=== PATIENT | male | born 1975 | race Caucasian/White ===

== ENCOUNTER 2021-05-31 10:38 | Emergency (ER) | payer BC, SELFPAY ==
[2021-05-31] VITALS (15 sets, daily range): BP systolic 118–158; BP diastolic 71–96; PULSE 56–85; RESP 7–20; TEMP 36.8; O2SAT 89–100
--- NOTE | 2021-05-31 10:48 | ED.GENADUL_ITS ---
Discharge Plan Disposition Patient Disposition: HOME Condition: Stable Discharge Details Clinical Impression: Dizziness Primary Care Provider: Sharla Mcbride ED Provider: Stephanie Santizo Home Meds and New Rx's Prescriptions: New meclizine 12.5 mg tablet 12.5 mg PO TID PRN (Reason: dizziness) Qty: 14 RF: 0 Continued epinephrine [EpiPen 2-Bhupinder] 0.3 MG/0.3 ML auto-injector 0.3 mg IJ PRN PRN (Reason: Anaphylaxis) Qty: 1 RF: 0 Discharge Instructions Instructions: Dehydration (ED), Vertigo (ED), Dizziness (ED) Additional Instructions: It is possible that your symptoms today were the result of dehydration. Drink plenty of fluids and get plenty of rest. You were given information today regarding symptoms associated with dizziness and dehydration and a specific type of dizziness called vertigo. Call your primary care doctor today to schedule a follow-up appointment for reevaluation and for referral for outpatient medical technologist hematology if your symptoms return or persist. Return immediately to the emergency department if you develop any worsening or new concerning symptoms. Discharge Data Discharge Physician: Stephanie Santizo Medical Decision Making 45yo male with no significant past medical history presents for an episode of dizziness, nausea, sweating and shaking after standing up quickly at home 1 hour prior to arrival. Most symptoms resolved other than some nausea at present. He denies any chest pain or palpitations during this episode. Vitals within normal limits. He appears comfortable and. He has no focal deficits on exam. No cerebellar signs. EKG notes a rate of 63, sinus with benign early repol, no STEMI, Nondiagnostic. Differential diagnosis includes dehydration, vertigo, BPPV, arrhythmia, electrolyte abnormality. History and presentation does not appear consistent with CVA. Will place an IV, bolus IV fluids, screening labs, EKG, chest x-ray and will give meclizine and Zofran and reassess. Labs and imaging reviewed and unremarkable. Orthostatic vital signs after IV fluids within normal limits. Patient reassessed and he feels much better and is requesting to go home. Offered to place a medical technologist hematology here but he declined stating he will follow up with his PCP for this. A prescription for meclizine was sent electronically to his pharmacy if needed. Advised to follow up with the primary care doctor for re-evaluation. Usual and customary return precautions given prior to discharge. Medical Records Medical records reviewed: Yes I reviewed the patient's medical records. Lab Data Lab results reviewed: Yes I reviewed the patient's lab results. Labs: Laboratory Tests Range/Units 05/31/21 05/31/21 05/31/21 11:35 11:35 11:35 WBC (4.4-10.8) 10^3/uL 6.02 RBC (4.36-5.78) 10^6/uL 4.73 Hgb (13.5-17.5) g/dL 14.1 Hct (40.0-50.0) % 42.0 MCV (80-95) fL 88.8 MCH (27.0-33.0) pg 29.8 MCHC (32.0-36.0) % 33.6 RDW (11.8-14.1) % 11.4 L Plt Count (130-400) 10^3/uL 197 MPV (8.0-11.0) fL 9.8 Immature Gran % 0.3 Neutrophils % 70.4 Lymphocytes % 22.3 Monocytes % 6.0 Eosinophils % 0.5 Basophils % 0.5 Nucleated RBC % % 0 Absolute Neutrophils (1.2-6.7) 10^3/uL 4.24 Absolute Lymphocytes (1.2-3.4) 10^3/uL 1.34 Absolute Monocytes (0.1-0.8) 10^3/uL 0.36 Absolute Eosinophils (0.0-0.7) 10^3/uL 0.03 Absolute Basophils (0.0-0.2) 10^3/uL 0.03 D-Dimer (<500) ng/mlFEU Sodium (136-145) mmol/L 138 Potassium (3.5-5.1) mmol/L 3.9 Chloride (98-107) mmol/L 103 Carbon Dioxide (21.0-32.0) mmol/L 29.8 Anion Gap (3-11) mmol/L 5.2 BUN (7-18) mg/dL 16 Creatinine (0.70-1.30) mg/dL 1.1 Estimated GFR/1.73 m2 (mL/min/1.73m2) >= 60.00 Glucose (74-106) mg/dL 124 H Calcium (8.5-10.1) mg/dL 8.8 Magnesium (1.8-2.4) mg/dL 1.8 Total Bilirubin (0.2-1.0) mg/dL 0.5 AST (15-37) U/L 19 ALT (16-63) U/L 27 Alkaline Phosphatase (46-116) U/L 100 Troponin I (<0.06) ng/mL < 0.05 Total Protein (6.4-8.2) g/dL 7.3 Albumin (3.4-5.0) g/dL 3.8 Range/Units 05/31/21 11:35 WBC (4.4-10.8) 10^3/uL RBC (4.36-5.78) 10^6/uL Hgb (13.5-17.5) g/dL Hct (40.0-50.0) % MCV (80-95) fL MCH (27.0-33.0) pg MCHC (32.0-36.0) % RDW (11.8-14.1) % Plt Count (130-400) 10^3/uL MPV (8.0-11.0) fL Immature Gran % Neutrophils % Lymphocytes % Monocytes % Eosinophils % Basophils % Nucleated RBC % % Absolute Neutrophils (1.2-6.7) 10^3/uL Absolute Lymphocytes (1.2-3.4) 10^3/uL Absolute Monocytes (0.1-0.8) 10^3/uL Absolute Eosinophils (0.0-0.7) 10^3/uL Absolute Basophils (0.0-0.2) 10^3/uL D-Dimer (<500) ng/mlFEU 167 Sodium (136-145) mmol/L Potassium (3.5-5.1) mmol/L Chloride (98-107) mmol/L Carbon Dioxide (21.0-32.0) mmol/L Anion Gap (3-11) mmol/L BUN (7-18) mg/dL Creatinine (0.70-1.30) mg/dL Estimated GFR/1.73 m2 (mL/min/1.73m2) Glucose (74-106) mg/dL Calcium (8.5-10.1) mg/dL Magnesium (1.8-2.4) mg/dL Total Bilirubin (0.2-1.0) mg/dL AST (15-37) U/L ALT (16-63) U/L Alkaline Phosphatase (46-116) U/L Troponin I (<0.06) ng/mL Total Protein (6.4-8.2) g/dL Albumin (3.4-5.0) g/dL ECG Data Attestation: I personally reviewed and interpreted this ECG (s) as follows: Interpretation: Rate of 63, sinus, no acute ST elevation or depression. TX 190. QRS 97. QTc 407. HPI General Mode of arrival: ambulatory . Date/Time Provider Initiated Documentation: 05/31/21 10:46 . Limitations to Documentation: no limitations . Information obtained by: patient . HPI Narrative: Patient is a 45-year-old male with no significant past medical history presents for an episode of dizziness, nausea, sweating and feeling shaky after standing up quickly at home prior to arrival. Patient states around 10 AM this morning he stood up quickly to answer the phone and upon sitting back down felt a spinning sensation, sweaty, nauseous and shaky. He states the dizziness and shaking are resolved but still feels some nausea. He denies any similar history in the past. He states he had been feeling fine prior to this episode and denies any recent illnesses, fever, vomiting, diarrhea or known sick contacts. Patient denies any symptoms of chest pain, shortness of breath or palpitations during the episode. He describes the dizziness as a spinning sensation. He states he has been doing work around the house lately and may not be as hydrated as usual. He states he has been eating normally. Related Data Home Medications Medication Instructions Recorded Confirmed epinephrine [EpiPen 2-Bhupinder] 0.3 mg IJ PRN PRN #1 auto.injct 04/06/18 05/31/21 meclizine 12.5 mg PO TID PRN #14 tab 05/31/21 Previous Rx's Medication Instructions Recorded epinephrine [EpiPen 2-Bhpuinder] 0.3 mg IJ PRN PRN #1 auto.injct 04/06/18 meclizine 12.5 mg PO TID PRN #14 tab 05/31/21 Allergies Allergy/AdvReac Type Severity Reaction Status Date / Time No Known Allergies Allergy Unverified 05/31/21 10:44 General Stated Complaint: Dizzy/Sync ELBA: 3 Review of Systems All systems reviewed & are unremarkable except as noted in HPI and below Constitutional Constitutional: Reports as per HPI, Denies chills and Denies fever(s) Eyes Eyes: Denies blurry vision ENT Ears, Nose, Mouth, and Throat: Reports dizziness, Denies sore throat and Denies throat swelling Cardiovascular Cardiovascular: Denies chest pain and Denies dyspnea Respiratory Respiratory: Denies cough and Denies dyspnea Gastrointestinal Gastrointestinal: Denies abdominal pain, Denies diarrhea, Reports nausea and Denies vomiting Genitourinary Genitourinary: Denies hematuria and Denies dysuria Musculoskeletal Musculoskeletal: Denies back pain and Denies numbness Integumentary/Breasts Skin/Breast: Denies lesions and Denies rash Neurologic Neurologic: Reports dizziness, Denies localized weakness and Denies numbness Allergic/Immunologic Allergic/Immunologic: Denies throat swelling [facility] Medical History (Updated 05/31/21 @ 13:12 by Stephanie Santizo DO) No significant past medical history Surgical History (Updated 05/31/21 @ 11:07 by Stephanie Santizo DO) No significant past surgical history Social History Smoking/Tobacco Use Status: Never Smoking risk assessment performed?: Yes Alcohol Intake: current Alcohol Intake frequency: a few times a week Substance use type: does not use Do you feel safe at home: Yes Do you feel safe in your relationship?: Yes Exam Const General: cooperative, healthy appearing and no acute distress [facility] Head: normal to inspection Ears: hearing grossly normal bilaterally, external ears normal and TM's normal bilaterally Face and sinus: normal facial exam Mouth: oral mucosae normal Eyes General: appearance normal, both eyes and all related structures Pupils: PERRL EOM: EOM intact bilaterally Neck Neck: normal visual inspection and No submandibular swelling Lymphatic: no lymphadenopathy noted Chest Chest: normal inspection of the chest and no tenderness Resp Effort & Inspection: normal respiratory effort and able to speak in complete sentences Auscultation: clear to auscultation bilaterally Cardio Rate: regular rate Rhythm: regular rhythm GI Inspection: normal to inspection Palpation: soft, not firm, not rigid and nontender Auscultation: normal bowel sounds Skin General skin exam: no rashes or lesions noted Neuro General: patient alert, patient awake, patient oriented x3, moves all extremities, no meningeal signs and no focal motor deficits Cranial Nerves: CN's II-XI intact bilaterally Cognition: normal cognition Speech: speech normal Motor: muscle tone normal throughout, strength 5/5 throughout, no pronator drift and no movement abnormalities noted Sensory Exam: no sensory deficits noted Extrem General: normal to inspection, full ROM, capillary refill normal, no calf tenderness bilaterally and no edema Psych Appearance: grossly normal Mental Status: mental status grossly normal Speech and Movement: speech and movement normal Affect: normal affect Course Vital Signs Vital signs: Vital Signs Temperature 98.2 F 05/31/21 10:42 Pulse 74 05/31/21 10:42 Respiratory Rate 18 05/31/21 10:42 Blood Pressure 158/86 H 05/31/21 10:42 Pulse Oximetry 98 05/31/21 10:42 Temperature 98.2 F 05/31/21 10:42 Temperature Source Temporal Artery Scan 05/31/21 10:42 Pulse 74 05/31/21 10:42 Respiratory Rate 18 05/31/21 10:45 Respiratory Effort Non-Labored 05/31/21 10:45 Respiratory Depth Normal 05/31/21 10:45 Respiratory Pattern Normal 05/31/21 10:45 Blood Pressure 118/71 05/31/21 10:47 Pulse Oximetry 98 05/31/21 10:42 Oxygen Delivery Method Room Air 05/31/21 10:42 Oxygen Flow Rate 0 05/31/21 10:42 Pain Level 0 05/31/21 10:42
--- NOTE | 2021-05-31 11:00 | DI.RAD_ITS ---
Exam(s) XR CHEST 2V PA LATERAL EXAM: XR CHEST 2V PA LATERAL CLINICAL HISTORY: dizziness, r/o acute disease. TECHNIQUE: 2D digital imaging was performed. COMPARISON: No exams were available for comparison FINDINGS: Heart size is normal. The mediastinum is not widened. Lungs are clear. No infiltrates nor pleural effusions. IMPRESSION: No acute pulmonary findings. DATA REPOSITORY: RADIATION DOSE DELIVERED:
--- NOTE | 2021-05-31 11:00 | RT.EKG_ITS ---
APPROVED REPORT Exam: Resting ECG Reason for Exam: dizziness Patient Location: E HR:63 bpm ECG Measurements Heart Rate 63 AXIS WV 190 P 75 QRSd 97 QRS 68 QT 396 T 36 QTc 407 Conclusion Sinus rhythm...normal P axis, V-rate 60- 99 ST elev, probable normal early repol pattern...ST elevation, age<55. Sinus. Benign early repol. No STEMI. I have reviewed and interpreted ECG and agree with software generated interpretation.
[2021-05-31] MEDS: Normal Saline 1,000 ML 1000 ML IV (11:37)
[2021-05-31 11:47] LABS: Abs Immature Grans 0.02 10^3/uL (0.0-0.06); Absolute Basophil Count 0.03 10^3/uL (0.0-0.2); Absolute Eosinophil Count 0.03 10^3/uL (0.0-0.7); Absolute Lymphocyte Count 1.34 10^3/uL (1.2-3.4); Absolute Monocyte Count 0.36 10^3/uL (0.1-0.8); Absolute Neutrophil Count 4.24 10^3/uL (1.2-6.7); Basophils % 0.5; Eosinophils % 0.5; HGB 14.1 g/dL (13.5-17.5); Immature Grans % 0.3; Lymphocytes % 22.3; MCH 29.8 pg (27.0-33.0); MCHC 33.6 % (32.0-36.0); MCV 88.8 fL (80-95); MPV 9.8 fL (8.0-11.0); Neutrophils % 70.4; Nucleated RBC 0 %; Platelet Count 197 10^3/uL (130-400); RBC 4.73 10^6/uL (4.36-5.78); RDW 11.4 % (11.8-14.1); RDW-SD 37.2 fL; WBC 6.02 10^3/uL (4.4-10.8)
[2021-05-31] MEDS: Meclizine 25 MG TAB PO (11:51)
[2021-05-31] MEDS: Ondansetron 4 MG/2 ML VIAL IVP (11:51)
[2021-05-31 12:14] LABS: Magnesium 1.8 mg/dL (1.8-2.4)
[2021-05-31 12:23] LABS: ALT 27 U/L (16-63); AST 19 U/L (15-37); Albumin 3.8 g/dL (3.4-5.0); Alkaline Phosphatase 100 U/L (46-116); Anion Gap 5.2 mmol/L (3-11); BUN 16 mg/dL (7-18); Bilirubin, Total 0.5 mg/dL (0.2-1.0); CO2 29.8 mmol/L (21.0-32.0); CREATININE 1.1 mg/dL (0.70-1.30); Calcium 8.8 mg/dL (8.5-10.1); Chloride 103 mmol/L (98-107); Glucose 124 mg/dL (74-106); Potassium 3.9 mmol/L (3.5-5.1); Sodium 138 mmol/L (136-145); Total Protein 7.3 g/dL (6.4-8.2)
[2021-05-31 12:25] LABS: Troponin I < 0.05 ng/mL (<0.06)
[2021-05-31 12:28] LABS: D-Dimer 167 ng/mlFEU (<500)
--- OUTSIDE RECORDS SUMMARY | 2021-05-31 13:59 | XMS_ITS | Continuity of Care Document ---
:1975 Author Organization [facility] Address [address] [place] [address] Care Team Providers Name Role Phone Reed Primary Care Physician Unavailable Allergies, Adverse Reactions, Alerts No known allergies. Medications Active Medications Medication Dose Units Route Sig Qty Days Start Date St atus Cephalexin 500 MG ORAL FOUR TIMES DAILY 20 5 2017 Active Problem List Active Problems Medical Problem Onset Date Status Puncture wound of left little finger Act eldon Procedures No known history of procedures. Relevant Diagnostic Tests and/or Laboratory Data No known relevant diagnostic tests, laboratory data, and/or discharge summary. Advance Directives Advance Directive Response Recorded Date/Time Do we have a copy on file here at [facility]? No A ug2017 11:23am Does patient have an Advanced Directive? No May 15, 2018 11:23am Pt has a Living Will? No May 15, 2018 11 :23am Pt has a Power of Tug Captain? No May 15 11:23am Hospital Discharge Instructions Additional Discharge Instructions Take antibiotic exac tly as prescribed with food to help prevent infection. Do not skip or miss any doses. Soak the area twice daily in warm soapy water. Keep clean and dry. Keep covered as needed to avoid contact with possib le infectious material. You have declined x-ray to rule out any retained foreign body. If you change your mind please follow-up for this exam. If at any time you develop any worsening, pain, swelling, redness, discharge, or pain with pass eldon range of motion as demonstrated please follow-u p immediately as this could indicate infection of the skin, tendons or other deep structures. Instruction/Education Provided Wound Care (DC) Hospital Discharge Medications Medication Dose Units Route Sig Qty Days Order Date Status In structions Cephalexin 500 MG ORAL FOUR TIMES 20 5 May 15, Activ e DAILY 2018 Encounters Encounter Facility Location Admit/Visit Discharge/Departure Atte nding Date Date Provider Departed [facility] May 15May 15, 2018 [facility] [place] 2017 11:18am 11:53am Functional Status No known functional status. Immunizations Immunization Name Date Given Type Tdap May 15, 2018 Administered Payers Payer Name Policy Type Covered Covered Relationship Subscriber Sub scriber Id Republican Republican Id [employer] Commercial ANNEMARIE [id number] Self/Same as ANNEMARIE WIGGINS [id number] [facility] 60 Patient [employer] SELF PAY Personal Plan of Care Instructions Wound Care (DC) Social History Query Response Start Date Stop Date Smoking Status Never smoker Vital Signs Vital Reading Result Reference Range Collection Date/ Time Height n/a Weight 83.915 kg May 15, 2018 11:26am Temperature 98.4 F 97.6 F-99.6 F May 15, 2018 11:26am Pulse 65 BPM 60-100 May 15, 2018 11:26am Respiration 12 RPM 12-24 May 15, 2018 11:26am Pulse Oximetry n/a Blood Pressure Systolic 120 100-140 May 062017 11:26am Blood Pressure Diastolic 62 50-85 May 15, 2018 11:26am Body Mass Index n/a
== END 2021-05-31 13:27 | disposition home or self-care (01) ==
PROVIDERS: Emergency Provider Physician Assistant; PCP Nurse Practitioner Family
DX: R04.2 Hemoptysis (principal); J18.8 Other pneumonia, unspecified organism; Z20.822 Contact with and (suspected) exposure to COVID-19; Z03.818 Encounter for observation for suspected exposure to other biological agents ruled out
CPT/HCPCS: 36415; 80053; 93005; 99285; 71046; 83735; 84484; 85025; 85379; 93010; J2405

== ENCOUNTER 2023-03-01 09:34 | Outpatient (CLI) | payer BC, SELFPAY ==
--- NOTE | 2023-03-01 09:30 | RT.EKG_ITS ---
APPROVED REPORT Exam: Resting ECG Reason for Exam: Chest dscomfort Patient Location: O HR:60 bpm ECG Measurements Heart Rate 60 AXIS LA 200 P 76 QRSd 94 QRS 73 QT 385 T 49 QTc 385 Conclusion Sinus rhythm...normal P axis, V-rate 50- 99 ST elev, probable normal early repol pattern...ST elevation, age<55 Normal Electrocardiogram
== END 2023-03-01 09:35 | disposition home or self-care (01) ==
LOC: DI.CM 09:35
PROVIDERS: PCP Nurse Practitioner Family; Visit Provider Nurse Practitioner Family
DX: R07.89 Other chest pain (principal)
CPT/HCPCS: 93010

== ENCOUNTER 2023-03-01 10:17 | Emergency (ER) | payer BC, SELFPAY ==
[2023-03-01] VITALS (52 sets, daily range): BP systolic 122–129; BP diastolic 75–103; PULSE 59–61; RESP 9–32; TEMP 36.8; O2SAT 96–100
--- NOTE | 2023-03-01 10:15 | RT.EKG_ITS ---
APPROVED REPORT Exam: Resting ECG Reason for Exam: chest pain Patient Location: E HR:61 bpm ECG Measurements Heart Rate 61 AXIS MO 176 P 59 QRSd 95 QRS 69 QT 395 T 30 QTc 399 Conclusion Sinus rhythm...normal P axis, V-rate 60- 99 ST elev, probable normal early repol pattern...ST elevation, age<55
--- NOTE | 2023-03-01 10:30 | DI.RAD_ITS ---
Exam(s) XR PORTABLE CHEST AP EXAM: XR PORTABLE CHEST AP CLINICAL HISTORY: chest pain. TECHNIQUE: 2D digital imaging was performed. COMPARISON: CR XR CHEST 2V PA LATERAL from 05/31/2021 FINDINGS: Single AP portable view. Heart size is upper normal. The mediastinum is not widened. Lungs are clear. No infiltrates nor obvious pleural effusions. IMPRESSION: No acute pulmonary findings on this single AP portable view of the chest. DATA REPOSITORY: RADIATION DOSE DELIVERED:
--- NOTE | 2023-03-01 10:34 | ED.GENADUL_ITS ---
Discharge Plan Disposition Patient Disposition: Home Condition: Stable Discharge Details Clinical Impression: Chest pain Primary Care Provider: Sharla Mcbride ED Provider: Uche Seymour Home Meds and New Rx's Prescriptions: Continued epinephrine [EpiPen 2-Buhpinder] 0.3 MG/0.3 ML auto-injector 0.3 mg IJ PRN PRN (Reason: Anaphylaxis) Qty: 1 0RF meclizine 12.5 mg tablet 12.5 mg PO TID PRN (Reason: dizziness) Qty: 14 0RF Discharge Instructions Instructions: Chest Pain (ED) Additional Instructions: your blood work, xray and ekg did not show concerning findings follow up with your primary care provider within 1 week if you feel more ill, have severe worsening pain or difficulty breathing return to the emergency department Medical Decision Making 47 yo male with no significant pmhx who comes in with intermittent chest pain for 2 months. HE states that he will get 10-15 seconds of a twinge and spasm sensation in the left anterior chest. Denies diaphoresis, no dyspnea, no n/v. He states he will also sometimes get a tingling sensation in his left arm. HE denies pain with exertion. HE arrives stable speaking clearly in no distress. HE has no leg swelling, no calf tenderness, clear lungs, no murmurs, no jvd, normal gait without focal deficits. Suspect muscle spasm vs chest wall pain, but given pain will obtain cbc, cmp, troponin, d dimer and monitor. pt stable, imaging and labs unremarkable, given he's had symptoms over 3 hours do not feel delta troponin indicated. HE was instructed to f/u with his pcp and discuss stress testing, heart score is less then 3, return precautions given Differential Diagnosis Differential Diagnosis: chest wall pain, muscle spasm, nstemi Medical Records Medical records reviewed: Yes I reviewed the patient's medical records. Imaging Data Radiologic Study: Attestation: I personally reviewed and interpreted this imaging study as follows: Imaging: X-Ray Radiologist's impression: no acute findings Lab Data Lab results reviewed: Yes I reviewed the patient's lab results. ECG Data Attestation: I personally reviewed and interpreted this ECG (s) as follows: Prior ECG tracings: available for review Interpretation: sinus rate pf 61, pr 176, no stemi no st depressions HPI General Mode of arrival: ambulatory . Date/Time Provider Initiated Documentation: 03/01/23 10:19 . Limitations to Documentation: no limitations . Information obtained by: patient . History of Present Illness 47 year old M presents to the emergency department with the chief complaint of chest pain, described as moderate, Quality is described as aching, and is localized to the chest. Patient started experiencing this month(s) (2) and it has been intermittent. No relieving factors improve symptom(s), No exacerbating factors reported . Patient notes no other symptoms.. Patient did receive the following treatments prior to arrival, none Related Data Home Medications Medication Instructions Recorded Confirmed epinephrine 0.3 mg/0.3 mL 0.3 mg (0.3 mL) IJ PRN PRN 04/06/18 03/01/23 injection, auto-injector (EpiPen Anaphylaxis ##1 2-Bhupinder) meclizine 12.5 mg tablet 12.5 mg PO TID PRN dizziness #14 05/31/21 03/01/23 tabs Previous Rx's Medication Instructions Recorded epinephrine 0.3 mg/0.3 mL 0.3 mg (0.3 mL) IJ PRN PRN 04/06/18 injection, auto-injector (EpiPen Anaphylaxis ##1 2-Bhupinder) meclizine 12.5 mg tablet 12.5 mg PO TID PRN dizziness #14 05/31/21 tabs Allergies Allergy/AdvReac Type Severity Reaction Status Date / Time bee venom protein (honey bee) AdvReac Unverified 03/01/23 10:28 bee Allergy Uncoded 03/01/23 10:28 General Stated Complaint: Chest Pain ELBA: 3 Review of Systems All systems reviewed & are unremarkable except as noted in HPI and below Constitutional Constitutional: Denies chills, Denies fever(s) and Denies weakness Cardiovascular Cardiovascular: Denies dyspnea Respiratory Respiratory: Denies cough and Denies dyspnea Gastrointestinal Gastrointestinal: Denies abdominal pain, Denies nausea and Denies vomiting Musculoskeletal Musculoskeletal: Denies joint swelling Integumentary/Breasts Skin/Breast: Denies rash Neurologic Neurologic: Denies weakness PFSH All Active Problems (Updated 03/01/23 @ 12:07 by Uche Seymour MD) Dizziness (Acute) Chest pain (Acute) Medical History (Updated 03/01/23 @ 12:07 by Uche Seymour MD) No significant past medical history Surgical History (Updated 05/31/21 @ 11:07 by Stephanie Santizo DO) No significant past surgical history Social History Smoking/Tobacco Use Status: Never Smoking risk assessment performed?: Yes Alcohol Intake: current Alcohol Intake frequency: a few times a week Substance use type: does not use Do you feel safe at home: Yes Do you feel safe in your relationship?: Yes Exam Const General: no acute distress Orientation: alert HENMT Head: normal to inspection Ears: external ears normal General nose exam: external nose normal Mouth: moist mucous membranes Resp Effort & Inspection: normal respiratory effort and able to speak in complete sentences Auscultation: clear to auscultation bilaterally Cardio Jugular venous pressure: no JVD Rate: regular rate Heart Sounds: no murmurs GI Palpation: soft and nontender Skin General skin exam: no rashes or lesions noted Neuro General: patient alert and patient oriented x3 Course Vital Signs Vital signs: Vital Signs Temperature 36.8 C 03/01/23 10:21 Pulse 61 03/01/23 10:21 Respiratory Rate 16 03/01/23 10:21 Blood Pressure 129/75 03/01/23 10:21 Pulse Oximetry 100 03/01/23 10:21 Temperature 36.8 C 03/01/23 10:21 Temperature Source Oral 03/01/23 10:21 Pulse 61 03/01/23 10:21 Respiratory Rate 16 03/01/23 10:21 Blood Pressure 129/75 03/01/23 10:21 Pulse Oximetry 100 03/01/23 10:21 Oxygen Delivery Method Room Air 03/01/23 10:21 Oxygen Flow Rate 0 03/01/23 10:21 Pain Level 2 03/01/23 10:21
[2023-03-01 10:42] LABS: Absolute Basophil Count 0.04 10^3/uL (0.0-0.2); Absolute Eosinophil Count 0.07 10^3/uL (0.0-0.7); Absolute Lymphocyte Count 2.09 10^3/uL (1.2-3.4); Absolute Monocyte Count 0.43 10^3/uL (0.1-0.8); Absolute Neutrophil Count 3.48 10^3/uL (1.2-6.7); Basophils % 0.7; Eosinophils % 1.1; HCT 45.7 % (40.0-50.0); HGB 15.6 g/dL (13.5-17.5); Lymphocytes % 34.2; MCH 29.8 pg (27.0-33.0); MCHC 34.1 % (32.0-36.0); MCV 87 fL (80-95); MPV 9.6 fL (8.0-11.0); Platelet Count 214 10^3/uL (130-400); RBC 5.23 10^6/uL (4.36-5.78); RDW 11.8 % (11.8-14.1); RDW-SD 37.5 fL; WBC 6.11 10^3/uL (4.4-10.8)
[2023-03-01 11:06] LABS: ALT 41 U/L (16-63); AST 24 U/L (15-37); Albumin 4.1 g/dL (3.4-5.0); Alkaline Phosphatase 105 U/L (46-116); Anion Gap 3.2 mmol/L (3-11); BUN 17 mg/dL (7-18); Bilirubin, Total 0.7 mg/dL (0.2-1.0); CO2 29.8 mmol/L (21.0-32.0); CREATININE 1.2 mg/dL (0.70-1.30); Calcium 9.2 mg/dL (8.5-10.1); Chloride 100 mmol/L (98-107); Glucose 101 mg/dL (74-106); Lipase 73 U/L (16-77); Magnesium 1.9 mg/dL (1.8-2.4); Potassium 4.5 mmol/L (3.5-5.1); Sodium 133 mmol/L (136-145); TSH (W/Ref FT4) 2.84 uIU/mL (0.36-3.74); Total Protein 7.8 g/dL (6.4-8.2)
[2023-03-01 11:07] LABS: Troponin I < 50 ng/L (<or=60)
[2023-03-01 11:22] LABS: D-Dimer 163 ng/mlFEU (<500)
--- NOTE | 2023-03-01 11:24 | DI.VRAD_ITS ---
PROCEDURE INFORMATION: Exam: XR Chest Exam date and time: 03/01/2023 11:14 AM Age: 47 years old Clinical indication: Pain; Chest pressure TECHNIQUE: Imaging protocol: Radiologic exam of the chest. Views: 1 view. Total images: 1 COMPARISON: CR XR CHEST 2V PA LATERAL 05/31/2021 12:06 PM FINDINGS: Lungs: Unremarkable. No consolidation. Pleural spaces: Unremarkable. No pleural effusion. No pneumothorax. Heart/Mediastinum: Unremarkable. No cardiomegaly. Bones/joints: Unremarkable. IMPRESSION: No acute findings. Dictated and Authenticated by: Frederick Torres MD. Ordering:JUAN Ivey MD
== END 2023-03-01 12:18 | disposition home or self-care (01) ==
PROVIDERS: Emergency Provider Emergency Medicine; PCP Nurse Practitioner Family
DX: R07.9 Chest pain, unspecified (principal)
CPT/HCPCS: 36415; 80053; 83690; 93005; 99283; 71045; 83735; 84443; 84484; 85025; 85379; 93010; 99284

== ENCOUNTER 2025-04-07 21:35 | Outpatient (REF) | payer BC, SELFPAY ==
[2025-04-07 21:58] LABS: Abs Immature Grans 0.02 10^3/uL (0.0-0.06); HCT 45.6 % (40.0-50.0); HGB 15.9 g/dL (13.5-17.5); Immature Grans % 0.3 %; MCH 30.0 pg (27.0-33.0); MCHC 34.9 % (32.0-36.0); MCV 86 fL (80-95); MPV 10.3 fL (8.0-11.0); Platelet Count 277 10^3/uL (130-400); RBC 5.30 10^6/uL (4.36-5.78); RDW 11.9 % (11.8-14.1); RDW-SD 37.0 fL; WBC 7.17 10^3/uL (4.4-10.8)
[2025-04-07 22:21] LABS: ALT 33 U/L (16-63); AST 19 U/L (15-37); Albumin 4.5 g/dL (3.4-5.0); Alkaline Phosphatase 113 U/L (46-116); Anion Gap 9.4 mmol/L (3-11); BUN 19 mg/dL (7-18); Bilirubin, Total 0.9 mg/dL (0.2-1.0); CO2 29.6 mmol/L (21.0-32.0); Calcium 9.7 mg/dL (8.5-10.1); Chloride 102 mmol/L (98-107); Estimated GFR 68.19 (mL/min/1.73m2); Glucose 100 mg/dL (74-106); Potassium 4.4 mmol/L (3.5-5.1); Sodium 141 mmol/L (136-145); Total Protein 8.0 g/dL (6.4-8.2)
== END 2025-04-07 21:36 | disposition home or self-care (01) ==
LOC: LBN 21:35
PROVIDERS: PCP Physician Assistant; Visit Provider Physician Assistant
DX: R10.9 Unspecified abdominal pain (principal)
CPT/HCPCS: 80053; 85025

== ENCOUNTER 2025-07-11 14:51 | Outpatient (CLI) | payer BC, SELFPAY ==
[2025-07-11 16:43] LABS: Calculated LDL 99 mg/dL (<100); Cholesterol 202 mg/dL (<200); HDL Cholesterol 33 mg/dL (>or=40); Triglyceride 351 mg/dL (<150)
[2025-07-11 16:51] LABS: Hemoglobin A1C 5.1 % (<5.7)
== END 2025-07-11 14:52 | disposition home or self-care (01) ==
LOC: LOS 14:51
PROVIDERS: PCP Nurse Practitioner Family; Visit Provider Nurse Practitioner Family
DX: Z13.220 Encounter for screening for lipoid disorders (principal); Z13.1 Encounter for screening for diabetes mellitus
CPT/HCPCS: 36415; 80061; 83036